=== PATIENT | female | born 1965 | race Caucasian/White ===

== ENCOUNTER → 2020-07-21 | Outpatient (CLI) | payer OTHER ==
--- NOTE | 2020-07-22 17:12 | MAM ---
EXAM DESCRIPTION: 3D Screening BILATERAL : Digital Mammography. CLINICAL HISTORY: 54 years Female ANNUAL SCREENING . No complaints. Bilateral breast reduction. No complaints and no family history of breast cancer. Menarche age 10. No childbirth. Hysterectomy age 31. No HRT.. Lifetime risk of developing breast cancer (Tyrer-Cuzick model)(%): 8.9. COMPARISON: Bilateral screening 2-D digital mammography from outside imaging facility January 2015. TECHNIQUE: Bilateral CC and MLO projection full-field images, digital tomosynthesis mammographic technique. Bilateral digital 2-D full-field MLO images. and CC images. CAD available for 2-D images. Technologist note: Scarring around both nipples from prior surgery. FINDINGS: The breast parenchymal density pattern is: Scattered areas of fibroglandular density. No nipple retraction. Bilateral skin thickening associated with scarring from prior breast reduction surgery.. Bilateral scattered solitary microcalcifications. Bilateral architectural distortion. Groups of benign type calcifications bilaterally. Skin mole markers on the left breast. Probable intramammary lymph node near the left axilla. No new focal, stellate mass or density, focal asymmetry , and no suspicious microcalcifications bilaterally. Stable mammograms compared to prior study. Taking into account, differences in mammographic technique. IMPRESSION: Benign exam. BIRAD CATEGORY: 2 BENIGN FINDINGS. RECOMMENDATIONS: FOLLOW UP: Routine digital bilateral mammographic screening, one year interval from July 2020. Written communication explaining the IMPRESSION and follow-up, will be mailed to the patient and referring health care provider. According to the [employer], yearly mammograms are recommended starting at age 40 and continuing as long as a woman is in good health. Any breast change noted on a breast self-exam should be reported promptly to the patient's healthcare provider. Breast MRI is recommended for women with an approximately 20-25% or greater lifetime risk of breast cancer, including women with a strong family history of breast or ovarian cancer and women who have been treated for Hodgkin's disease. A negative mammographic report should not delay tissue diagnosis in patients with significant clinical history or physical findings. Extremely dense breast tissue limits the sensitivity of digital mammography. Electronically signed by: Dustin Crain MD 07/22/2020 5:11 PM CDT
== END ==
LOC: CT 09:17
PROVIDERS: ATTEND General Practice
DX: Z12.31 Encounter for screening mammogram for malignant neoplasm of breast (principal); Z01.812 Encounter for preprocedural laboratory examination; R19.00 Intra-abdominal and pelvic swelling, mass and lump, unspecified site

== ENCOUNTER → 2020-07-24 | Outpatient (CLI) | payer OTHER ==
--- NOTE | 2020-07-25 10:38 | CT ---
EXAM DESCRIPTION: Abdoment/Pelvis w/o Contrast CLINICAL HISTORY: 54 years, Female, ABDOMINAL MASS COMPARISON: CT abdomen and pelvis 03/26/2019, 03/29/2017. TECHNIQUE: CT of the abdomen and pelvis is performed without IV or p.o. contrast. Multiplanar reconstructions were obtained. FINDINGS: Partially limited evaluation without intravenous contrast. The lung bases are unremarkable. The liver is normal in size and contour. The spleen is normal in size. The adrenals and pancreas unremarkable. The gallbladder is surgically absent. The kidneys are normal in size and contour. Several punctate left nonobstructing renal calyceal stones are present (approximately three stones measuring up to 3 mm). No right-sided nephrolithiasis. No obstructing ureteral stone. No hydronephrosis. The ureters are normal in caliber. Constipation with a small to moderate stool burden throughout the cecum and colon. No focal bowel wall thickening or bowel obstruction. The appendix is not visualized and likely surgically absent. Prior midline incision. No anterior abdominal wall hernia. No inguinal hernia. 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 Retroaortic/retrocrural course of the left renal vein is unchanged. No free fluid within the pelvis. The uterus is surgically absent. The partially distended bladder is normal in appearance. No lymphadenopathy. No acute osseous abnormality. IMPRESSION: 1. No abdominopelvic mass, lymphadenopathy, or hernia on noncontrast CT. 2. Punctate left nonobstructing nephrolithiasis. 3. Cholecystectomy. 4. Mild constipation. 5. 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 This exam was performed according to our departmental dose-optimization program, which includes automated exposure control, adjustment of the mA and/or kV according to patient size and/or use of iterative reconstruction technique. Electronically signed by: Damian Lin DO 07/25/2020 10:36 AM CDT
== END ==
LOC: CT 09:48
PROVIDERS: ATTEND General Practice
DX: N20.0 Calculus of kidney (principal); K59.00 Constipation, unspecified; Z90.49 Acquired absence of other specified parts of digestive tract; Q26.8 Other congenital malformations of great veins